=== PATIENT | female | born 1985 | race Caucasian/White ===

== ENCOUNTER 2019-06-24 08:21 | Emergency (ER) | payer BC ==
[~2019-06-24] VITALS: Ht 170.2 cm; Wt 61.4 kg
[2019-06-24 08:31] VITALS: BP 120/69
[2019-06-24] MEDS ORDERED: ZOLOFT 50MG50 MG PO (08:34)
[2019-06-24] MEDS ORDERED: AMOXICILLIN 8751 TAB PO (09:15)
[2019-06-24 10:04] VITALS: PULSE 75; TEMP 97.6
== END 2019-06-24 10:04 | disposition home or self-care (01) ==
LOC: COL.ER 08:21
DX: S31.823A Puncture wound without foreign body of left buttock, initial encounter (principal); F41.9 Anxiety disorder, unspecified; W26.8XXA Contact with other sharp object(s), not elsewhere classified, initial encounter; Y92.009 Unspecified place in unspecified non-institutional (private) residence as the place of occurrence of the external cause

== ENCOUNTER 2022-02-20 23:07 | Inpatient (IN) | payer BC ==
[~2022-02-20] VITALS: Ht 170.2 cm; Wt 71.4 kg
[~2022-02-20 23:07] MED LIST: AMOXICILLIN 8751 TAB PO; ZOLOFT 50MG50 MG PO
[2022-02-20 23:45] VITALS: BP 110/71; PULSE 87; TEMP 98.6
[2022-02-21] VITALS (14 sets, daily range): BP systolic 91–118; BP diastolic 47–72; PULSE 53–98; TEMP 97.6–98
[2022-02-21 01:17] LABS: BASO # 0.1 K/mm3 (0.0-0.2); BASO % 0.4 % (0.0-2.0); EOS # 0.4 K/mm3 (0.0-0.7); EOS % 2.3 % (0.0-4.0); GRAN # 12.8 K/mm3 (1.4-6.5); GRAN % 78.3 % (42.2-75.2); HEMATOCRIT 42.3 % (37.0-47.0); HEMOGLOBIN 14.7 g/dl (12.5-16.0); LYMPH # 2.1 K/mm3 (1.2-3.4); MEAN CELL VOLUME 88 fl (80.0-100.0); MEAN CORPUSCULAR HEMOGLOBIN 31 pg (27-31); MEAN CORPUSCULAR HGB CONC 35 g/dl (33.0-37.0); MEAN PLATELET VOLUME 9.5 fl (7.4-10.4); MONO # 0.9 K/mm3 (0.1-0.6); MONO % 5.6 % (1.7-9.3); PLATELET COUNT 219 K/mm3 (130-400); RED BLOOD COUNT 4.81 M/mm3 (4.10-5.30); REDCELL DISTRIBUTION WIDTH-CV 13.2 % (11.5-14.5)
--- NOTE | 2022-02-21 02:56 | NUR ---
PROLONGED FHR DECEL FROMBASLINE OF 135 TO 70-80'S FOR 10 MIN. PT TURNED TO RIGHT SIDE, LEFT SIDE AND THEN HANDS AND KNEES. O2 ON VIA MASK AT 10 L/MIN. DR MORENO IN ROOM. PT WAS PUSHING WHENTHE DECEL OCCURED. PT STOPPED PUSHING AND NURSING INTERVENTIONS WERE DONE. FHR RECOVERED TO BASELINE OF 145 WITH ACCELS.
--- NOTE | 2022-02-21 03:30 | NUR ---
FHR 150 BASELILNE WITH EARLY AND VARIABLE DECELS. dR DENT HERE AND AWARE OF STRIP. 21923 CHANGED PT'S POSITION BACK TO SEMIFOWLERS WITH ASSISTANCE. DR DENT HERE, SVE NO CHANGE IN CERVIX. PT BACK TO SEMI FOWLERS POSITION AND PUSHING. PT IS PUSHING WELL AND BABY STARTS TO DECEND.
--- NOTE | 2022-02-21 04:07 | NUR ---
VAG DELIVERY OF FEMALE . BABY PLACED ON MOMS ABD, DRIED AND STIMULATED. BABY CRYING, CARE IS GIVEN TO BETTY WALTERS FROM NURSERY. PLACENTA DELIVERED AT 0417 INTACT.
--- NOTE | 2022-02-21 08:54 | NUR ---
0700 PT AMUBLUATES TO BR TOLERATES WELL, VOIDS 900, PADS AND PANTIES ON. TO RM [id number].
[2022-02-22 00:20] VITALS: BP 116/65; PULSE 78; TEMP 98.6
[2022-02-22] MEDS ORDERED: IBU800 M1 PO (07:48)
[2022-02-22 07:59] VITALS: BP 114/78; PULSE 55; TEMP 97.4
--- NOTE | 2022-02-22 09:45 | NUR ---
Initial visit Parents thanked Car Sander for offering congratulations and God's blessings for the of their daughter. Car Sander thanked family for choosing [facility] to which they stated how nice their stay here has been.
== END 2022-02-22 10:58 | disposition home or self-care (01) | DRG 806 ==
LOC: LDRO 23:07 → LDR 23:07 → LDRO 02-21 00:36 → OB 02-21 00:37 → LDR 02-21 00:37 → OB 02-21 08:00
PROVIDERS: Student in an Organized Health Care Education/Training Program; ADMIT Obstetrics & Gynecology
PROC: 10E0XZZ Delivery of Products of Conception, External Approach (ICD-10-PCS; principal; 2022-02-21)
PROC: 10907ZC Drainage of Amniotic Fluid, Therapeutic from Products of Conception, Via Natural or Artificial Opening (ICD-10-PCS; 2022-02-21)
PROC: 0UQG7ZZ Repair Vagina, Via Natural or Artificial Opening (ICD-10-PCS; 2022-02-21)
DX: O99.344 Other mental disorders complicating childbirth (principal); O71.4 Obstetric high vaginal laceration alone; Z37.0 Single live birth; F41.9 Anxiety disorder, unspecified; O99.02 Anemia complicating childbirth; D64.9 Anemia, unspecified; O76 Abnormality in fetal heart rate and rhythm complicating labor and delivery; Z3A.40 40 weeks gestation of pregnancy
CPT/HCPCS: OP; J2590; J7120